=== PATIENT | female | born 1975 | race Hispanic/Latino ===

== ENCOUNTER 2017-07-19 20:29 | Emergency (ER) | payer SELFPAY ==
[~2017-07-19] VITALS: Ht 154.9 cm; Wt 72.6 kg
[2017-07-19] MEDS ORDERED: KETOROLAC TROMETHAMINE 60 MG/2 ML VIAL IM ONE (23:15)
== END 2017-07-20 01:06 | disposition home or self-care (01) ==
LOC: ER 20:29
DX: G43.109 Migraine with aura, not intractable, without status migrainosus (principal)
CPT/HCPCS: 96372; 99282; J1885

== ENCOUNTER 2020-02-27 19:52 | Emergency (ER) | payer SELFPAY ==
[~2020-02-27] VITALS: Ht 154.9 cm; Wt 72.6 kg
[2020-02-27] MEDS ORDERED: ACETAMINOPHEN 325 MG TAB ONE (20:05)
[2020-02-27 20:06] VITALS: BP 116/71
[2020-02-27] MEDS ORDERED: ACETAMINOPHEN 325 MG TAB PO ONE (20:15)
--- NOTE | 2020-02-27 20:36 | Emergency Department Note ---
History of Present Illnes History of Present Illness Chief Complaint: COVID PUI History of Present Illness This is a 44 year old female arrives to the ED with complaints of cough and fever, mother tested positive for Covid 19. Historian: Patient Arrival Mode: Car Onset (how long ago): day(s) Radiation: Reports non-radiation Severity: mild Onset quality: gradual Duration (how long): day(s) Chronicity: new Relieving factors: none Exacerbating factors: none Past Medical/Family History Physician Review I have reviewed the patient's past medical and family history. Any updates have been documented here. Past Medical History Recent Fever: Yes Clinical Suspicion of Infectio: Yes New/Unexplained Change in Ment: No Other Medical History: FAILED A STRESS TEST 10 YRS AGO, NOT CURRENTLY ON ANY MEDS/BLOOD THINNERS Other Surgery: X3 Social History Smoking Cessation: Never Smoker Counseling Performed: No Alcohol Use: Occasional Any Illegal Drug Use: No Physically hurt or threatened: No Other Last Tetanus: UNK Review of Systems Review of Systems Constitutional: Reports as per HPI, Reports chills, Reports fever EENTM: Reports no symptoms Cardiovascular: Reports no symptoms Respiratory: Reports as per HPI Gastrointestinal: Reports no symptoms Genitourinary: Reports no symptoms Musculoskeletal: Reports no symptoms Integumentary: Reports no symptoms Neurological: Reports no symptoms Psychological: Reports no symptoms Endocrine: Reports no symptoms Hematological/Lymphatic: Reports no symptoms Physical Exam Related Data Allergies: Uncoded Allergies: IV CONTRAST (Allergy, Unknown, 07/19/17) Triage Vital Signs Vital Signs Date Time Temp Pulse Resp B/P (MAP) Pulse Ox O2 Delivery O2 Flow Rate FiO2 02/27/20 19:59 102.7 127 23 146/89 100 Room Air Vital signs reviewed: Yes Physical Exam CONSTITUTIONAL Constitutional: Present well-developed, Present well-nourished HENT HENT: Present normocephalic, Present atraumatic, Present oropharynx clear/moist, Present nose normal HENT L/R: Present left ext ear normal, Present right ext ear normal EYES Eyes: Reports PERRL, Reports conjunctivae normal NECK Neck: Present ROM normal PULMONARY Pulmonary: Present effort normal, Present breath sounds normal CARDIOVASCULAR Cardiovascular: Present regular rhythm, Present heart sounds normal, Present capillary refill normal, Present normal rate GASTROINTESTINAL Abdominal: Present soft, Present nontender, Present bowel sounds normal GENITOURINARY Genitourinary: Present exam deferred SKIN Skin: Present warm, Present dry MUSCULOSKELETAL Musculoskeletal: Present ROM normal NEUROLOGICAL Neurological: Present alert, Present oriented x 3, Present no gross motor or sensory deficits PSYCHOLOGICAL Psychological: Present mood/affect normal, Present judgement normal Assessment & Plan Medical Decision Making MDM 45-year-old well-appearing female arrives to the ED with complaints of cough fever loss of taste and smell. Patient is clinically presenting with signs and symptoms consistent with Covid 19. Patient informed she is positive until proven otherwise. Patient's oxygen saturation remained 99% even on exertion, no evidence of tachypnea or dyspnea noted in the ED. Spoke present length about the importance of sleeping on her stomach and rotating from side to side. Z-Elpidio given, signs and symptoms for return discussed. In the light of the Covid pandemic, disaster medicine care was given- patient understands why she was not tested for Covid 19 in the ED, no indications for a chest x-ray at this time given normal oxygen saturation and respiratory status. Assessment & Plan Final Impression: (1) COVID-19 Depart Disposition: HOME, SELF-CARE Last Vital Signs Date Time Temp Pulse Resp B/P (MAP) Pulse Ox O2 Delivery O2 Flow Rate FiO2 02/27/20 19:59 102.7 127 23 146/89 100 Room Air Home Meds No Active Prescriptions or Reported Meds Medications in the ED Acetaminophen 975 mg STK-MED ONCE .ROUTE ; Start 02/27/20 at 20:05; Stop 02/27/20 at 19:59; Status DC Acetaminophen 975 mg ONCE ONCE PO Last administered on 02/27/20at 20:11; Admin Dose 975 MG; Start 02/27/20 at 20:15; Stop 02/27/20 at 20:16; Status DC KAIDEN VENCES, Feb 27, 2020 20:36
== END 2020-02-27 21:24 | disposition home or self-care (01) ==
LOC: ER 20:11
DX: R05 Cough (principal); R50.9 Fever, unspecified; R43.8 Other disturbances of smell and taste; Z20.828 Contact with and (suspected) exposure to other viral communicable diseases
CPT/HCPCS: 99282

== ENCOUNTER 2023-01-04 03:32 | Emergency (ER) | payer OTHER ==
[~2023-01-04] VITALS: Ht 154.9 cm; Wt 72.6 kg
[2023-01-04 05:18] VITALS: BP 103/60; PULSE 67; RESP 17; TEMP 98.2; O2SAT 97
== END 2023-01-04 05:28 | disposition home or self-care (01) ==
LOC: ER 03:40
DX: S00.31XA Abrasion of nose, initial encounter (principal); S00.83XA Contusion of other part of head, initial encounter; Y04.0XXA Assault by unarmed brawl or fight, initial encounter; Y92.89 Other specified places as the place of occurrence of the external cause; E11.9 Type 2 diabetes mellitus without complications
CPT/HCPCS: 70450; 70486; 99283